=== PATIENT | male | born 1965 | race Caucasian/White ===

== ENCOUNTER 2021-05-01 07:28 | Outpatient (CLI) | payer OTHER ==
[2021-05-01] MEDS ORDERED: LEVO75TA5 PO (08:25)
[2021-05-01] MEDS ORDERED: PIOG45TA63 PO (08:25)
[2021-05-01] MEDS ORDERED: TAMS-11 PO (08:25)
[2021-05-01] MEDS ORDERED: AMLO-211 PO (08:25)
[2021-05-01] MEDS ORDERED: PARO20TA4 PO (08:25)
[2021-05-01] MEDS ORDERED: ASPI81TA45 PO (08:25)
[2021-05-01] MEDS ORDERED: LOSA100T14 PO (08:25)
[2021-05-01] MEDS ORDERED: HYDR25TA6 PO (08:25)
[2021-05-01] MEDS ORDERED: METF1000 PO (08:25)
[2021-05-01] MEDS ORDERED: NEBI20TA2 PO (08:25)
[2021-05-01] MEDS ORDERED: ATOR20TA37 PO (08:25)
[2021-05-01 08:42] LABS: ALANINE AMINOTRANSFERASE 27 U/L (12-78); ALBUMIN 3.5 g/dL (3.4-5.0); ANION GAP 3 mmol/L (5-15); CALCIUM 9.1 mg/dL (8.5-10.1); CHLORIDE 106 mmol/L (98-107)
[2021-05-01 08:45] LABS: ALKALINE PHOSPHATASE 85 U/L (45-117); BILIRUBIN,TOTAL 0.6 mg/dL (0.2-1.0); TOTAL PROTEIN 8.1 g/dL (6.4-8.2)
== END 2021-05-01 23:59 | disposition home or self-care (01) ==
LOC: STAR 07:28 → MERGE 07:28 → STAR 23:59
PROVIDERS: ATTEND Anesthesiology
DX: Z01.812 Encounter for preprocedural laboratory examination (principal); Z20.822 Contact with and (suspected) exposure to COVID-19; I44.0 Atrioventricular block, first degree; I44.4 Left anterior fascicular block
CPT/HCPCS: 36415; 80053; 93005; U0003; U0005